=== PATIENT | male | born 1945 | race Caucasian/White ===

== ENCOUNTER 2024-05-31 09:13 | Outpatient (AMB) | payer MEDICARE, SELFPAY ==
--- NOTE | 2024-05-31 09:45 | A.OFFPC_ITS ---
Vital Signs 05/31/24 09:47 Height 5 ft 8.11 in Weight 148 lb 6 oz BMI 22.5 BP 130/80 Blood Pressure Location Lt brachial Position Sitting Pulse 83 Pulse Source Pulse Oximeter Temp 97.1 F Temp Source Temporal Artery Scan Pulse Oximetry (%) 97 Oxygen Delivery Method Room Air Intake Visit Reasons: establish care Intake Note: Patient is a new patient here to establish care for Arthritis, History of neck pain, Dupron syndrome, Bone spurs. Transferring care from [facility] . Medical records have been requested and have received. Sr. Manager Corporate Communications Required: No Database Reporting Consultant: Present Accompanied by: Spouse Allergies gabapentin Allergy (Intermediate, Verified 05/31/24 10:13) Anaphylaxis Medication List - Last Reconciled 05/31/24 by Dottie Estrada PA-C omega 2-bhy-iwz-fish oil 300-1,000 mg (Fish Oil) 1 cap PO DAILY Tobacco use date assessed: 05/31/24 Fall risk assessment: No Falls in past year Last assessed Fall Risk: 05/31/24 Dental Screening Dental Screen Date: 05/31/24 Did you have a dental visit in the last 12 months?: Yes Did you have a dental problem in the last 6 months where you did not have access to dental care?: No Was dental information given to patient?: Patient has dentist HPI establish care HPI Details 79-year-old male with past medical histo ry of chronic pain of left knee coming to the office for the 1st time.? Patient is transferring from [facility] primary care last seen 2019. Presenting with osteoarthritis primarily affecting the wrists, thumbs, fingers, and other joints, which causes persistent pain and stiffness. 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 He experiences intense pain in the morning, making it difficult to move his hands, which improves with therapy involving soaking his hands in warm and cold water. He effectively uses compression gloves overnight to manage symptoms. The patient has not received orthopedic interventions like injections but is aware of their availability if necessary and does follow with [facility]. He also reports having Dupuytren's Contracture in both palms, posing additional limitations. 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 declined lung cancer screening. colonoscopy: done 10 years ago [facility] Surgical History History of eye removal History of tonsillectomy History of facial surgery History of neck surgery Social History Housing: House Alcohol intake: never Patient Tobacco Use Status: Current everyday Tobacco user Tobacco use type: Cigarette Cigarette Packs Per Day: 0.5 Cigarettes Per Day: 10 Years Smoked: 65 e-Cigarette/Vaping Use: Never Used Second Hand Smoke Exposure: Yes service: Yes Current occupational status: retired Cognitive needs: No Hearing needs: No Vision needs: Yes (Glasses) Questionnaire PHQ-9 Over the last 2 weeks, how often have you been bothered by any of the following problems? 1. Little interest or pleasure in doing things: not at all 2. Feeling down, depressed, or hopeless: not at all 3. Trouble falling or staying asleep, or sleeping too much: not at all 4. Feeling tired or having little energy: not at all 5. Poor appetite or overeating: not at all 6. Feeling bad about yourself - or that you are a failure or have let yourself or your family down: not at all 7. Trouble concentrating on things, such as reading the newspaper or watching television: not at all 8. Moving or speaking so slowly that other people could have noticed. Or the opposite - being so fidgety or restless that you have been moving around a lot more than usual: not at all 9. Thoughts that you would be better off or of hurting yourself in some way: not at all Total score: 0 Depression Screening Interpretation: Negative Depression Screening Done: Yes Source: Developed by Drs. Domenico Holden, Christina Lara, Benjamin Man and colleagues, with an educational alondra from [employer]. Thrive Questionnaire Date Thrive assessed: 05/24/24 I am a: Patient What is your living situation today?: I have a steady place to live Within the past 12 months, did the food you bought not last and you didn't have the money to get more?: Never true Within the past 12 months, did you worry whether your food would run out before you got money to buy more?: Never true Do you have trouble paying for medicines?: No Do you have trouble getting transportation to medical appointments?: No Do you have trouble paying your heating and electricity bill?: No Do you have trouble taking care of your child, family member or friend?: No Do you have trouble with day-to-day activities such as bathing, preparing meals, shopping, managing finances, etc.?: No Are you currently unemployed and looking for a job?: No Are you interested in more education?: No Please select the resources that you would like help with: None Currently or been in a relationship where the following occur: No concerns reported THRIVE Score: 0 AUDIT C Alcohol Use Questionnaire (AUDIT-C) 2. How many drinks containing alcohol do you have on a typical day when you are drinking?: 1 or 2 Total Score: 0 SUPA-7 AMB Questionnaire SUPA-7 Date SUPA - 7 assessed: 05/31/24 Feeling nervous, anxious, or on edge: 0 = Not at all Not being able to stop or control worryin = Not at all Worrying too much about different things: 0 = Not at all Trouble relaxin = Not at all Being so restless that it is hard to sit still: 0 = Not at all Becoming easily annoyed or irritable: 0 = Not at all Feeling afraid as if something awful might happen: 0 = Not at all Total SUPA-7 score (0-4 normal; 5-9 mild; 10-14 moderate; 15-21 severe): 0 Source: Developed by Drs. Domenico Holden, Christina Lara, Benjamin Man and colleagues, with an educational alondra from [employer]. SUPA-7 Assessment Billing SUPA-7 Assessment Tool: SUPA-7 Assessment 11820 Review of Systems Const Denies body aches, Denies chills, Denies fever(s), Denies headache(s) and Denies poor appetite Eyes Reports no additional complaints ENT Denies dizziness and Denies headache(s) Card Denies chest pain, Denies syncope, Denies edema, Denies irregular heart rhythm, Denies lightheadedness and Denies dyspnea Resp Denies cough and Denies dyspnea GI Denies abdominal pain, Denies constipation, Denies diarrhea, Denies nausea and Denies vomiting Reports no additional complaints Musc Reports no additional complaints and Denies abnormal gait Skin/Breast Reports system reviewed and no additional complaints, except as documented Neuro Denies abnormal gait, Denies dizziness, Denies syncope and Denies headache(s) Psych Reports no additional complaints Physical exam (Primary Care) Vital Signs: Last Vital Signs Temp 97.1 F 05/31/24 09:47 Pulse 83 05/31/24 09:47 BP 130/80 05/31/24 09:47 Pulse Ox 97 05/31/24 09:47 Oxygen Delivery Method Room Air 05/31/24 09:47 BMI result Body Mass Index 22.5 Tobacco/Smoking Status: Tobacco use Status Tobacco use date assessed 05/31/24 05/31/24 09:53 Patient Tobacco Use Status Current everyday Tobacco 05/31/24 09:59 Tobacco use type Cigarette 05/31/24 09:59 e-Cigarette/Vaping Use Never Used 05/31/24 09:58 Are you ready to quit: No Tobacco cessation counseling provided: Yes Items discussed: Nicotine replacement CPT code: Less than 3 minutes PHQ-9: PHQ-9 Score PHQ-9: Total score 0 05/31/24 10:18 Depression Screening Interpretation: Negative Thrive Assessment: Date of Thrive Assessment Date Thrive assessed 05/24/24 05/31/24 09:53 Currently or been in a relationship where the following occur: No concerns reported Const General: cooperative, healthy appearing, comfortable and no acute distress Orientation/consciousness: patient oriented x3 HENMT Head: Yes normocephalic Ears: hearing grossly normal bilaterally General nose exam: Normal external nose present Eyes General: appearance normal, both eyes and all related structures Conjunctivae: conjunctivae normal Neck Neck: Yes full ROM and Yes no lymphadenopathy Resp Effort & Inspection: normal respiratory effort Auscultation: clear to auscultation bilaterally, no crackles, no rales, no rhonchi and no wheezes Cardio Rate: regular rate Rhythm: regular rhythm Skin General skin exam: no rashes or lesions noted Neuro General: patient oriented x3 Gait exam (Neuro): Normal gait present Extrem General: Yes normal to inspection, Yes full ROM and No edema Psych Affect: normal affect Attitude: cooperative Insight: Good insight present (Psych) Judgement: Good judgement present (Psych) Coding Level of Care Code New Pt Level 4 (51524) Diagnoses Osteoarthritis of hands, bilateral M19.041; M19.042 Tobacco use disorder F17.200 Colon cancer screening declined Z53.20 Additional Codes SUPA-7 Assessment Billing - SUPA-7 Assessment Tool: SUPA-7 Assessment 56550 ([id number]) Assessment & Plan Assessment & Plan (1) Osteoarthritis of hands, bilateral: Code(s): M19.041 - Primary osteoarthritis, right hand; M19.042 - Primary osteoarthritis, left hand Category: Medical Plan: The patient is advised to continue using compression gloves at night to manage osteoarthritis symptoms effectively. I recommended topical Voltaren gel for localized musculoskeletal pain relief. The patient is considering orthopedic consultation if symptoms worsen. (2) Tobacco use disorder: Code(s): F17.200 - Nicotine dependence, unspecified, uncomplicated Category: Medical Plan: Smoking cigarettes and the use of tobacco can be harmful. We discussed the importance of stopping and options to aid in smoking cessation. Discuss with patient lung cancer screening referral which was declined today. Patient also declines treatment using nicotine replacement therapy or other medical management. (3) Colon cancer screening declined: Code(s): Z53.20 - Procedure and treatment not carried out because of patient's decision for unspecified reasons Category: Medical Plan: Patient states he had a colonoscopy around 10 years ago which was normal and advised to follow up in 10 years. He is declining further screening at this time. Plan This note was constructed using voice recognition software. While every effort has been made to ensure accuracy and funeral service practitioner/embalmer, still areas may have been included sometimes these areas may affect the content or meeting of the given symptoms. Total time spent caring for the patient today was 30 minutes. This includes time spent before the visit reviewing the chart, time spent during the visit, and time spent after the visit and documentation. Patient was informed and verbally consented to the use of an ambient scribe for clinic note documentation during this visit. He is aware of the implications of his tobacco use and has access to cessation resources, although no immediate plans to quit were expressed. Blood work has been ordered for follow-up in three months to evaluate vitamin levels and other health parameters. Monitoring and revisiting the option of cortisone injections for symptom relief remain in plan. Orders: Orders Free T4 (Free Thyroxine) Today Z00.00 - Encounter for general adult medical examination without abnormal findings TSH reflex Free T4 Today Z00.00 - Encounter for general adult medical examination without abnormal findings Lipid Panel Today Z13.220 - Encounter for screening for lipoid disorders PSA, Ultra Sensitive Today Z00.00 - Encounter for general adult medical examination without abnormal findings Comprehensive Met. Panel Today Z00.00 - Encounter for general adult medical examination without abnormal findings Complete Blood Count Auto Diff Today Z00.00 - Encounter for general adult medi rommel examination without abnormal findings Vitamin B12 and Folate Today Z00.00 - Encounter for general adult medical examination without abnormal findings Vitamin D 25-OH Total Today Z00.00 - Encounter for general adult medical examination without abnormal findings Medications: New diclofenac sodium 1% (Voltaren Arthritis Pain) apply to single elbow, wrist or hand; for hand includes palm/fingers/back of hand 2 grams topical QID 100 grams 0RF
[2024-05-31 09:47] VITALS: BP 130/80; PULSE 83; TEMP 36.2; O2SAT 97; BMI 22.5
== END 2024-05-31 10:38 | disposition home or self-care (01) ==
LOC: HO.HMCH 09:14
DX: M19.041 Primary osteoarthritis, right hand (principal); M19.042 Primary osteoarthritis, left hand; F17.200 Nicotine dependence, unspecified, uncomplicated; Z53.20 Procedure and treatment not carried out because of patient's decision for unspecified reasons

== ENCOUNTER → 2024-05-31 09:13 | Outpatient (BNVA) | payer MEDICARE, SELFPAY | DX: M54.2 Cervicalgia (principal); M25.562 Pain in left knee; G89.29 Other chronic pain; M19.041 Primary osteoarthritis, right hand; M19.042 Primary osteoarthritis, left hand; F17.210 Nicotine dependence, cigarettes, uncomplicated | CPT/HCPCS: 96127; 99202 ==

== ENCOUNTER 2024-09-04 08:42 | Outpatient (AMB) | payer MEDICARE, SELFPAY ==
[2024-09-04 08:52] VITALS: BP 142/90; PULSE 73; RESP 16; TEMP 36.2; O2SAT 96; BMI 22.0
--- NOTE | 2024-09-04 08:52 | A.OFFPC_ITS ---
Vital Signs 09/04/24 08:52 09/04/24 09:25 Height 5 ft 8.11 in Weight 145 lb 6 oz BMI 22.0 BP 142/90 H 142/88 H Blood Pressure Location Lt brachial Lt brachial Position Sitting Sitting Respiration 16 Pulse 73 Pulse Source Pulse Oximeter Temp 97.1 F Temp Source Temporal Artery Scan Pulse Oximetry (%) 96 Oxygen Delivery Method Room Air Intake Visit Reasons: pe Accompanied by: Spouse Allergies gabapentin Allergy (Intermediate, Verified 09/04/24 09:00) Anaphylaxis Medication List - Last Reconciled 09/04/24 by Dottie Estrada PA-C diclofenac sodium 1% (Voltaren Arthritis Pain) 2 grams topical QID omega 5-lum-qmz-fish oil 300-1,000 mg (Fish Oil) 1 cap PO DAILY turmeric root extract 500 mg PO DAILY Tobacco use date assessed: 09/04/24 Fall risk assessment: No Falls in past year Last assessed Fall Risk: 09/04/24 Dental Screening Dental Screen Date: 09/04/24 Did you have a dental visit in the last 12 months?: Yes Did you have a dental problem in the last 6 months where you did not have access to dental care?: No Was dental information given to patient?: Patient has dentist HPI pe HPI Details 79 year old male with past medical histo ry of tobacco use disorder last seen 05/2024 coming in for annual exam. Presenting for a routine wellness visit and management of chronic conditions. The patient has a cataract in his only remaining eye, with surgery planned in two to three months. He is anxious about the procedure due to having only one eye. The patient's sodium levels are slightly low, possibly due to high water intake or low dietary sodium. He has been advised to reduce water intake or i ncrease sodium intake. The patient has low-normal vitamin B12 levels, attributed to low red meat consumption. He has been advised to take a multivitamin. lung cancer screening: declined Eye exam: [facility] PSA: 06/2024 normal colonoscopy: 10 years ago and declining additional screening [facility] Surgical History History of eye removal History of tonsillectomy History of facial surgery History of neck surgery Social History Housing: House Alcohol intake: never Patient Tobacco Use Status: Current everyday Tobacco user Tobacco use type: Cigarette Cigarette Packs Per Day: 0.5 Cigarettes Per Day: 10 Years Smoked: 65 e-Cigarette/Vaping Use: Never Used Second Hand Smoke Exposure: Yes service: Yes Current occupational status: retired Cognitive needs: No Hearing needs: No Vision needs: Yes (Glasses) Questionnaire PHQ-9 Over the last 2 weeks, how often have you been bothered by any of the following problems? 1. Little interest or pleasure in doing things: not at all 2. Feeling down, depressed, or hopeless: not at all 3. Trouble falling or staying asleep, or sleeping too much: not at all 4. Feeling tired or having little energy: not at all 5. Poor appetite or overeating: not at all 6. Feeling bad about yourself - or that you are a failure or have let yourself or your family down: not at all 7. Trouble concentrating on things, such as reading the newspaper or watching television: not at all 8. Moving or speaking so slowly that other people could have noticed. Or the opposite - being so fidgety or restless that you have been moving around a lot more than usual: not at all 9. Thoughts that you would be better off or of hurting yourself in some way: not at all Total score: 0 Depression Screening Interpretation: Negative Depression Screening Done: Yes Source: Developed by Drs. Domenico Holden, Christina Lara, Benjamin Man and colleagues, with an educational alondra from [employer]. Thrive Questionnaire Date Thrive assessed: 05/24/24 I am a: Patient What is your living situation today?: I have a steady place to live Within the past 12 months, did the food you bought not last and you didn't have the money to get more?: Never true Within the past 12 months, did you worry whether your food would run out before you got money to buy more?: Never true Do you have trouble paying for medicines?: No Do you have trouble getting transportation to medical appointments?: No Do you have trouble paying your heating and electricity bill?: No Do you have trouble taking care of your child, family member or friend?: No Do you have trouble with day-to-day activities such as bathing, preparing meals, shopping, managing finances, etc.?: No Are you currently unemployed and looking for a job?: No Are you interested in more education?: No Please select the resources that you would like help with: None Currently or been in a relationship where the following occur: No concerns reported THRIVE Score: 0 AUDIT C Alcohol Use Questionnaire (AUDIT-C) 2. How many drinks containing alcohol do you have on a typical day when you are drinking?: 1 or 2 Total Score: 0 SUPA-7 AMB Questionnaire SUPA-7 Date SUPA - 7 assessed: 05/31/24 Feeling nervous, anxious, or on edge: 0 = Not at all Not being able to stop or control worryin = Not at all Worrying too much about different things: 0 = Not at all Trouble relaxin = Not at all Being so restless that it is hard to sit still: 0 = Not at all Becoming easily annoyed or irritable: 0 = Not at all Feeling afraid as if something awful might happen: 0 = Not at all Total SUPA-7 score (0-4 normal; 5-9 mild; 10-14 moderate; 15-21 severe): 0 Source: Developed by Drs. Domenico Holden, Chirstina Lara, Benjamin Man and colleagues, with an educational alondra from [employer]. Review of Systems Const Denies body aches, Denies fatigue, Denies fever(s), Denies frequent falls, Denies headache(s) and Denies weakness Eyes Reports no additional complaints and Denies change in vision ENT Denies dysphagia, Denies dizziness, Denies facial pain, Denies headache(s), Denies nasal congestion and Denies odynophagia Card Denies chest pain, Denies syncope, Denies irregular heart rhythm, Denies leg nato ma, Denies lightheadedness and Denies dyspnea Resp Denies cough and Denies dyspnea GI Denies abdominal pain, Denies constipation, Denies dysphagia, Denies dyspepsia, Denies diarrhea, Denies nausea, Denies odynophagia and Denies vomiting Denies dysuria, Denies nocturia, Denies urinary frequency, Denies urinary hesitancy and Denies urinary urgency Musc Details: bilateral hand pain Denies back pain and Denies myalgias Skin/Breast Reports system reviewed and no additional complaints, except as documented Neuro Denies dizziness, Denies syncope, Denies frequent falls, Denies headache(s) and Denies weakness Psych Reports no additional complaints Endo Denies fatigue Physical exam (Primary Care) Vital Signs: Last Vital Signs Temp 97.1 F 09/04/24 08:52 Pulse 73 09/04/24 08:52 Resp 16 09/04/24 08:52 BP 142/88 H 09/04/24 09:25 Pulse Ox 96 09/04/24 08:52 Oxygen Delivery Method Room Air 09/04/24 08:52 BMI result Body Mass Index 22.0 Tobacco/Smoking Status: Tobacco use Status Tobacco use date assessed 09/04/24 09/04/24 08:57 Patient Tobacco Use Status Current everyday Tobacco 09/04/24 08:57 Tobacco use type Cigarette 09/04/24 08:57 e-Cigarette/Vaping Use Never Used 09/04/24 08:57 PHQ-9: PHQ-9 Score PHQ-9: Total score 0 09/04/24 09:00 Depression Screening Interpretation: Negative Thrive Assessment: Date of Thrive Assessment Date Thrive assessed 05/24/24 09/04/24 08:57 Currently or been in a relationship where the following occur: No concerns reported Const General: cooperative, healthy appearing, comfortable and no acute distress Orientation/consciousness: patient oriented x3 HENMT Head: Yes normocephalic Ears: hearing grossly normal bilaterally, external ears normal, TM's normal bilaterally and EAC's normal General nose exam: Normal external nose present Face and sinus: Yes normal facial exam and Yes sinuses nontender Mouth: Normal oral and palatal mucosa present and tongue normal Throat: Yes posterior oropharynx normal Eyes General: appearance normal, both eyes and all related structures Conjunctivae: conjunctivae normal Pupils: Equal, round and reactive pupils present EOM: EOMs intact bilaterally and No Nystagmus present Neck Neck: Yes normal visual inspection, Yes full ROM and Yes no lymphadenopathy Chest Chest palpation & inspection: normal inspection of the chest Resp Effort & Inspection: normal respiratory effort Auscultation: clear to auscultation bilaterally, no crackles, no rales, no rhonchi, no wheezes and breath sounds present Cardio Rate: regular rate Rhythm: regular rhythm Peripheral pulses: radial pulses present and dorsalis pedis present GI Inspection: Yes normal to inspection and No Abdominal wall edema Palpation (GI): Soft to palpation, not firm and nontender Auscultation: normal bowel sounds Rectal Exam - Male: Yes deferred General: Yes no CVA tenderness Back/Spine/Pelvis Back: no CVA tenderness Skin General skin exam: no rashes or lesions noted Neuro General: patient oriented x3 Cranial nerves: Yes Equal, round and reactive pupils present, Yes Midline tongue present, Yes Ability to bilaterally elevate shoulders present and No Nystagmus present Gait exam (Neuro): Normal gait present Extrem General: Yes normal to inspection, Yes full ROM, No no pedal edema and No edema Psych Speech and movement: Normal speech and movement present Affect: normal affect Insight: Good insight present (Psych) Judgement: Good judgement present (Psych) Coding Level of Care Code Est Pt Prev Care >65y(01043) Diagnoses Annual physical exam Z00.00 Colon cancer screening declined Z53.20 Osteoarthritis of hands, bilateral M19.041; M19.042 Tobacco use disorder F17.200 Hyponatremia E87.1 Elevated blood pressure reading without diagnosis of hypertension R03.0 Assessment & Plan Assessment & Plan (1) Annual physical exam: Code(s): Z00.00 - Encounter for general adult medical examination without abnormal findings Category: Medical Plan: Patient is due for colonoscopy which he is declining today. His PSA and other screenings are up-to-date and has been reviewed with the patient today. Blood work is up-to-date and has also been reviewed with the patient. Healthy diet and regular exercise is encouraged. (2) Colon cancer screening declined: Code(s): Z53.20 - Procedure and treatment not carried out because of patient's decision for unspecified reasons Category: Medical Plan: Patient continues to decline colonoscopy screening and understands the risks of not having this test done. (3) Osteoarthritis of hands, bilateral: Code(s): M19.041 - Primary osteoarthritis, right hand; M19.042 - Primary osteoarthritis, left hand Category: Medical Plan: Patient continues to use the copper sleeves as needed for hand pain. He does have Voltaren gel to be used as needed which he has not yet tried. He agrees to try this cream as needed and may follow up with [facility] as well as needed. (4) Tobacco use disorder: Code(s): F17.200 - Nicotine dependence, unspecified, uncomplicated Category: Medical Plan: Smoking cigarettes and the use of tobacco can be harmful. We discussed the importance of stopping and options to aid in smoking cessation. Declining lung cancer screening referral and NRT or medical management for smoking cessation at this time. (5) Hyponatremia: Code(s): E87.1 - Hypo-osmolality and hyponatremia Category: Medical Plan: Very mildly decreased sodium levels at 132. He states he does drink excessive amounts of water advised him to decrease his water intake and increase electrolyte intake with Gatorade or Powerade. Plan to repeat labs. (6) Elevated blood pressure reading without diagnosis of hypertension: Code(s): R03.0 - Elevated blood-pressure reading, without diagnosis of hypertension Category: Medical Plan: Blood pressure is mildly elevated in the office today 142/88 he states it is always elevated in the office due to anxiety. He agrees to take the blood pressure 2-3 times per week for the next month and follow up with nursing navigation at that time for repeat blood pressure check. If blood pressures at home exceed 140/90 patient agrees to reach out to the office. Plan to follow up yearly or sooner as needed for blood pressure management. Plan The patient is advised to monitor his blood pressure at home due to elevated readings during the visit, with instructions to report the measurements for further evaluation. He is encouraged to continue using multivitamins to address low vitamin and vitamin D levels, and to adjust his sodium intake by either reducing water consumption or increasing dietary sodium. 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 The patient is counseled on the importance of smoking cessation, although he expresses no interest in quitting or undergoing lung cancer screening. He is encouraged to maintain his current level of physical activity, which includes gardening and house maintenance, to support overall health. Follow-up is recommended in one month to reassess blood pressure and ensure compliance with the management plan. This note was constructed using voice recognition software. While every effort has been made to ensure accuracy and laser operator, still areas may have been included sometimes these areas may affect the content or meeting of the given symptoms. Total time spent caring for the patient today was 30 minutes. This includes time spent before the visit reviewing the chart, time spent during the visit, and time spent after the visit and documentation. Patient was informed and verbally consented to the use of an ambient scribe for clinic note documentation during this visit. Orders: Orders Basic Metabolic Panel Today E87.1 - Hypo-osmolality and hyponatremia
[2024-09-04 09:25] VITALS: BP 142/88
== END 2024-09-04 09:44 | disposition home or self-care (01) ==
LOC: HO.HMCH 08:43
DX: Z00.00 Encounter for general adult medical examination without abnormal findings (principal); Z53.20 Procedure and treatment not carried out because of patient's decision for unspecified reasons; M19.041 Primary osteoarthritis, right hand; M19.042 Primary osteoarthritis, left hand; F17.200 Nicotine dependence, unspecified, uncomplicated; E87.1 Hypo-osmolality and hyponatremia; R03.0 Elevated blood-pressure reading, without diagnosis of hypertension

== ENCOUNTER → 2024-09-04 08:42 | Outpatient (BNVA) | payer MEDICARE, SELFPAY | DX: Z00.00 Encounter for general adult medical examination without abnormal findings (principal); M19.041 Primary osteoarthritis, right hand; M19.042 Primary osteoarthritis, left hand; E87.1 Hypo-osmolality and hyponatremia; R03.0 Elevated blood-pressure reading, without diagnosis of hypertension; F17.210 Nicotine dependence, cigarettes, uncomplicated; Z13.31 Encounter for screening for depression | CPT/HCPCS: 96127; 99397 ==

== ENCOUNTER → 2024-10-05 08:52 | Outpatient (BNVA) | payer MEDICARE, SELFPAY | DX: I10 Essential (primary) hypertension (principal); I95.9 Hypotension, unspecified | CPT/HCPCS: 99211 ==

== ENCOUNTER 2024-10-31 08:47 | Outpatient (AMB) | payer MEDICARE, SELFPAY ==
--- NOTE | 2024-10-31 08:49 | MHC.PC.OV ---
Vital Signs 10/31/24 08:51 Height 5 ft 8.11 in Weight 146 lb BMI 22.1 BP 140/72 H Blood Pressure Location Lt brachial Position Sitting Pulse 54 Pulse Source Pulse Oximeter Pulse Oximetry (%) 94 Oxygen Delivery Method Room Air Intake Visit Reasons: [facility] 11/22 cataract surgery Inseamer Required: No Accompanied by: Self / Same As Patient Allergies gabapentin Allergy (Intermediate, Verified 10/31/24 08:50) Anaphylaxis Tobacco use date assessed: 10/31/24 Fall risk assessment: No Falls in past year Last assessed Fall Risk: 10/31/24 Dental Screening Dental Screen Date: 09/04/24 Did you have a dental visit in the last 12 months?: Yes Did you have a dental problem in the last 6 months where you did not have access to dental care?: No Was dental information given to patient?: Patient has dentist HPI [facility] 11/22 cataract surgery HPI Details 79-year-old male with past medical history of tobacco use disorder last seen 08/2024 coming in for preoperative visit. Patient is scheduled to have cataract surgery with [facility] 11/22/2024. He was recently hospitalized for syncope workup was completed at [facility] which revealed a possible thrombus in the left ventricle and was started on Eliquis b.i.d. He has no acute concerns today. He is scheduled to see cardiology 12/15/2024 for follow up but was advised to continue on the Eliquis. [facility] Surgical History History of eye removal History of tonsillectomy History of facial surgery History of neck surgery Social History Housing: House Alcohol intake: never Patient Tobacco Use Status: Current everyday Tobacco user Tobacco use type: Cigarette Cigarette Packs Per Day: 0.5 Cigarettes Per Day: 10 Years Smoked: 65 e-Cigarette/Vaping Use: Never Used Second Hand Smoke Exposure: Yes service: Yes Current occupational status: retired Cognitive needs: No Hearing needs: No Vision needs: Yes (Glasses) Questionnaire PHQ-9 Over the last 2 weeks, how often have you been bothered by any of the following problems? 1. Little interest or pleasure in doing things: not at all 2. Feeling down, depressed, or hopeless: not at all 3. Trouble falling or staying asleep, or sleeping too much: not at all 4. Feeling tired or having little energy: not at all 5. Poor appetite or overeating: not at all 6. Feeling bad about yourself - or that you are a failure or have let yourself or your family down: not at all 7. Trouble concentrating on things, such as reading the newspaper or watching television: not at all 8. Moving or speaking so slowly that other people could have noticed. Or the opposite - being so fidgety or restless that you have been moving around a lot more than usual: not at all 9. Thoughts that you would be better off or of hurting yourself in some way: not at all Total score: 0 Depression Screening Interpretation: Negative Depression Screening Done: Yes Source: Developed by Drs. Domenico Holden, Christina Lara, Benjamin Man and colleagues, with an educational alondra from [employer]. Thrive Questionnaire Date Thrive assessed: 05/24/24 I am a: Patient What is your living situation today?: I have a steady place to live Within the past 12 months, did the food you bought not last and you didn't have the money to get more?: Never true Within the past 12 months, did you worry whether your food would run out before you got money to buy more?: Never true Do you have trouble paying for medicines?: No Do you have trouble getting transportation to medical appointments?: No Do you have trouble paying your heating and electricity bill?: No Do you have trouble taking care of your child, family member or friend?: No Do you have trouble with day-to-day activities such as bathing, preparing meals, shopping, managing finances, etc.?: No Are you currently unemployed and looking for a job?: No Are you interested in more education?: No Please select the resources that you would like help with: None Currently or been in a relationship where the following occur: No concerns reported THRIVE Score: 0 AUDIT C Alcohol Use Questionnaire (AUDIT-C) 2. How many drinks containing alcohol do you have on a typical day when you are drinking?: 1 or 2 Total Score: 0 SUPA-7 AMB Questionnaire SUPA-7 Date SUPA - 7 assessed: 05/31/24 Feeling nervous, anxious, or on edge: 0 = Not at all Not being able to stop or control worryin = Not at all Worrying too much about different things: 0 = Not at all Trouble relaxin = Not at all Being so restless that it is hard to sit still: 0 = Not at all Becoming easily annoyed or irritable: 0 = Not at all Feeling afraid as if something awful might happen: 0 = Not at all Total SUPA-7 score (0-4 normal; 5-9 mild; 10-14 moderate; 15-21 severe): 0 Source: Developed by Drs. Domenico Holden, Christina Lara, Benjamin Man and colleagues, with an educational alondra from [employer]. Review of Systems Const Denies body aches, Denies fatigue, Denies fever(s), Denies frequent falls, Denies headache(s) and Denies weakness Eyes Reports no additional complaints and Denies change in vision ENT Denies dysphagia, Denies dizziness, Denies facial pain, Denies headache(s), Denies nasal congestion and Denies odynophagia Card Denies chest pain, Reports syncope (09/2024 ), Denies irregular heart rhythm, Denies leg edema, Denies lightheadedness and Denies dyspnea Resp Denies cough and Denies dyspnea GI Denies abdominal pain, Denies constipation, Denies dysphagia, Denies dyspepsia, Denies diarrhea, Denies nausea, Denies odynophagia and Denies vomiting Denies dysuria, Denies urinary frequency, Denies urinary hesitancy and Denies urinary urgency Musc Denies back pain and Denies myalgias Skin/Breast Reports system reviewed and no additional complaints, except as documented Neuro Denies dizziness, Reports syncope (09/2024 ), Denies frequent falls, Denies headache(s) and Denies weakness Psych Reports no additional complaints Endo Denies fatigue Physical exam (Primary Care) Vital Signs: Last Vital Signs Pulse 54 10/31/24 08:51 BP 140/72 H 10/31/24 08:51 Pulse Ox 94 10/31/24 08:51 Oxygen Delivery Method Room Air 10/31/24 08:51 BMI result Body Mass Index 22.1 Tobacco/Smoking Status: Tobacco use Status Tobacco use date assessed 10/31/24 10/31/24 08:58 Patient Tobacco Use Status Current everyday Tobacco 10/31/24 08:58 Tobacco use type Cigarette 10/31/24 08:58 e-Cigarette/Vaping Use Never Used 10/31/24 08:58 PHQ-9: PHQ-9 Score PHQ-9: Total score 0 10/31/24 09:32 Depression Screening Interpretation: Negative Thrive Assessment: Date of Thrive Assessment Date Thrive assessed 05/24/24 10/31/24 08:58 Currently or been in a relationship where the following occur: No concerns reported Const General: cooperative, healthy appearing, comfortable and no acute distress Orientation/consciousness: patient oriented x3 HENMT Head: Yes normocephalic Ears: hearing grossly normal bilaterally, external ears normal, TM's normal bilaterally and EAC's normal General nose exam: Normal external nose present Face and sinus: Yes normal facial exam and Yes sinuses nontender Mouth: Normal oral and palatal mucosa present and tongue normal Throat: Yes posterior oropharynx normal Eyes General: appearance normal, both eyes and all related structures Conjunctivae: conjunctivae normal Pupils: Equal, round and reactive pupils present EOM: EOMs intact bilaterally and No Nystagmus present Neck Neck: Yes normal visual inspection, Yes full ROM and Yes no lymphadenopathy Chest Chest palpation & inspection: normal inspection of the chest Resp Effort & Inspection: normal respiratory effort Auscultation: clear to auscultation bilaterally, no crackles, no rales, no rhonchi, no wheezes and breath sounds present Cardio Rate: regular rate Rhythm: regular rhythm Peripheral pulses: radial pulses present and dorsalis pedis present GI Inspection: Yes normal to inspection and No Abdominal wall edema Palpation (GI): Soft to palpation, not firm and nontender Auscultation: normal bowel sounds Rectal Exam - Male: Yes deferred General: Yes no CVA tenderness Back/Spine/Pelvis Back: no CVA tenderness Skin General skin exam: no rashes or lesions noted Neuro General: patient oriented x3 Cranial nerves: Yes Equal, round and reactive pupils present, Yes Midline tongue present, Yes Ability to bilaterally elevate shoulders present and No Nystagmus present Gait exam (Neuro): Normal gait present Extrem General: Yes normal to inspection, Yes full ROM, No no pedal edema and No edema Psych Speech and movement: Normal speech and movement present Affect: normal affect Insight: Good insight present (Psych) Judgement: Good judgement present (Psych) Coding Level of Care Code Est Pt Level 3 (67459) Diagnoses Pre-op evaluation Z01.818 Thrombus in heart chamber I51.3 Assessment & Plan Assessment & Plan (1) Pre-op evaluation: Code(s): Z01.818 - Encounter for other preprocedural examination Category: Medical Plan: Regarding preop clearance, the patient is at moderate risk for proposed surgery due to age and comorbidities. Reviewed with the patient that no surgery is completely free of risk and that this examination is to assist the surgeon in reviewing informed consent. Surgery not requiring EKG and blood work however he did have recent workup while in [facility] ED which was normal. He will continue on the apixaban 5 mg b.i.d. as this will likely not interfere with his surgery and there is low risk for bleed during cataract surgery. He will also see his boot and shoe laborer 11/15/2024 prior to surgery. However from a primary care standpoint he may proceed with contemplated procedure. (2) Thrombus in heart chamber: Code(s): I51.3 - Intracardiac thrombosis, not elsewhere classified Category: Medical Plan: Patient is scheduled to see Cardiology 11/15/2024 for follow up echocardiogram. He will continue on apixaban 5 mg b.i.d. and referral was placed to Hematology today as well for hypercoagulable workup. Strongly advised to stop smoking. Discussed patient can not take NSAIDs while on apixaban Plan This note was constructed using voice recognition software. While every effort has been made to ensure accuracy and navy diver, still areas may have been included sometimes these areas may affect the content or meeting of the given symptoms. Total time spent caring for the patient today was 30 minutes. This includes time spent before the visit reviewing the chart, time spent during the visit, and time spent after the visit and documentation. Orders: Referrals Hematology & Oncology Referral I51.3 - Intracardiac thrombosis, not elsewhere classified
[2024-10-31 08:51] VITALS: BP 140/72; PULSE 54; O2SAT 94; BMI 22.1
== END 2024-10-31 09:57 | disposition home or self-care (01) ==
LOC: HO.HMCH 08:48
DX: Z01.818 Encounter for other preprocedural examination (principal); I51.3 Intracardiac thrombosis, not elsewhere classified

== ENCOUNTER → 2024-10-31 08:47 | Outpatient (BNVA) | payer MEDICARE, SELFPAY | DX: Z01.818 Encounter for other preprocedural examination (principal); I51.3 Intracardiac thrombosis, not elsewhere classified; Z79.01 Long term (current) use of anticoagulants | CPT/HCPCS: 96127; 99212 ==

== ENCOUNTER → 2024-12-05 10:43 | Outpatient (BNV) | payer MEDICARE, SELFPAY | PROVIDERS: Visit Provider Internal Medicine | DX: I23.6 Thrombosis of atrium, auricular appendage, and ventricle as current complications following acute myocardial infarction (principal); F17.210 Nicotine dependence, cigarettes, uncomplicated; Z79.01 Long term (current) use of anticoagulants | CPT/HCPCS: 99204; G2211 ==

== ENCOUNTER 2025-01-28 08:53 | Outpatient (AMB) | payer MEDICARE, SELFPAY ==
[2025-01-28 09:15] VITALS: BP 138/80; PULSE 75; O2SAT 98; BMI 21.5
--- NOTE | 2025-01-28 09:15 | MHC.PC.OV ---
Vital Signs 01/28/25 09:15 Height 5 ft 10 in Weight 150 lb BMI 21.5 BP 138/80 Blood Pressure Location Lt brachial Position Sitting Pulse 75 Pulse Source Pulse Oximeter Pulse Oximetry (%) 98 Oxygen Delivery Method Room Air Intake Visit Reasons: f/u blood clot Allergies gabapentin Allergy (Intermediate, Verified 01/28/25 09:24) Anaphylaxis Medication List - Last Reconciled 01/28/25 by Dottie Estrada PA-C apixaban 5 mg PO BID losartan 25 mg PO DAILY omega 2-pgk-nma-fish oil 300-1,000 mg (Fish Oil) 1 cap PO DAILY turmeric root extract 500 mg PO DAILY Tobacco use date assessed: 10/31/24 Fall risk assessment: No Falls in past year Last assessed Fall Risk: 01/28/25 Dental Screening Dental Screen Date: 09/04/24 HPI f/u blood clot HPI Details 79-year-old male with past medical history of tobacco use disorder last seen 10/2024 coming in for pre-op. In review of the notes, patient was seen by Hematology 12/2024 advised colonoscopy and lung cancer screening continue to follow with Cardiology. Patient is coming in for preoperative visit for cataract surgery. He is having surgery on his left eye. The upcoming cataract surgery was previously scheduled but canceled by the anesthesiologist because the patient had not been on blood thinners for a sufficient duration. The patient has a history of a blood clot of unknown etiology, for which an extensive hematology workup was negative. The patient is currently on a blood thinner (Eliquis) and has been released from hematology care. He continues to follows with his train gateman and has preoperative appointment coming up Patient has no history of CVA, MT or CHF or diabetes mellitus. He has had surgery in the past without complication [facility] Surgical History History of eye removal History of tonsillectomy History of facial surgery History of neck surgery Family History Brother Non-Hodgkin lymphoma Mother Heart failure Brother HTN (hypertension) Social History Household Members: Spouse Housing: House Alcohol intake: never Patient Tobacco Use Status: Current everyday Tobacco user Tobacco use type: Cigarette Cigarette Packs Per Day: 0.5 Years Smoked: 65 Packs Per Year: 33 e-Cigarette/Vaping Use: Never Used Second Hand Smoke Exposure: Yes service: Yes Current occupational status: retired Cognitive needs: No Hearing needs: No Vision needs: Yes (Glasses) Questionnaire Thrive Questionnaire Date Thrive assessed: 05/24/24 I am a: Patient What is your living situation today?: I have a steady place to live Within the past 12 months, did the food you bought not last and you didn't have the money to get more?: Never true Within the past 12 months, did you worry whether your food would run out before you got money to buy more?: Never true Do you have trouble paying for medicines?: No Do you have trouble getting transportation to medical appointments?: No Do you have trouble paying your heating and electricity bill?: No Do you have trouble taking care of your child, family member or friend?: No Do you have trouble with day-to-day activities such as bathing, preparing meals, shopping, managing finances, etc.?: No Are you currently unemployed and looking for a job?: No Are you interested in more education?: No Please select the resources that you would like help with: None Currently or been in a relationship where the following occur: No concerns reported THRIVE Score: 0 SUPA-7 AMB Questionnaire SUPA-7 Date SUPA - 7 assessed: 05/31/24 Source: Developed by Drs. Domenico Holden, Christina Lara, Benjamin Man and colleagues, with an educational alondra from [employer] Review of Systems Const Denies body aches, Denies chills, Denies fever(s), Denies headache(s) and Denies poor appetite Eyes Reports no additional complaints ENT Denies dizziness and Denies headache(s) Card Denies chest pain, Denies syncope, Denies edema, Denies irregular heart rhythm, Denies lightheadedness and Denies dyspnea Resp Denies dyspnea GI Denies abdominal pain, Denies nausea and Denies vomiting Reports no additional complaints Musc Reports no additional complaints and Denies abnormal gait Skin/Breast Reports system reviewed and no additional complaints, except as documented Neuro Denies abnormal gait, Denies dizziness, Denies syncope and Denies headache(s) Psych Reports no additional complaints Physical exam (Primary Care) Vital Signs: Last Vital Signs Pulse 75 01/28/25 09:15 BP 138/80 01/28/25 09:15 Pulse Ox 98 01/28/25 09:15 Oxygen Delivery Method Room Air 01/28/25 09:15 BMI result Body Mass Index 21.5 Tobacco/Smoking Status: Tobacco use Status Tobacco use date assessed 10/31/24 01/28/25 09:23 Patient Tobacco Use Status Current everyday Tobacco 01/28/25 09:23 Tobacco use type Cigarette 01/28/25 09:23 e-Cigarette/Vaping Use Never Used 01/28/25 09:23 Thrive Assessment: Date of Thrive Assessment Date Thrive assessed 05/24/24 01/28/25 09:23 Currently or been in a relationship where the following occur: No concerns reported Const General: cooperative, healthy appearing, comfortable and no acute distress Orientation/consciousness: patient oriented x3 HENMT Head: Yes normocephalic Ears: hearing grossly normal bilaterally General nose exam: Normal external nose present Eyes General: appearance normal, both eyes and all related structures Conjunctivae: conjunctivae normal Neck Neck: Yes full ROM and Yes no lymphadenopathy Resp Effort & Inspection: normal respiratory effort Auscultation: clear to auscultation bilaterally, no crackles, no rales, no rhonchi and no wheezes Cardio Rate: regular rate Rhythm: regular rhythm Skin General skin exam: no rashes or lesions noted Neuro General: patient oriented x3 Gait exam (Neuro): Normal gait present Extrem General: Yes normal to inspection, Yes full ROM and No edema Psych Affect: normal affect Attitude: cooperative Insight: Good insight present (Psych) Judgement: Good judgement present (Psych) Coding Level of Care Code Est Pt Level 3 (34379) Diagnoses Pre-op evaluation Z01.818 Assessment & Plan Assessment & Plan (1) Pre-op evaluation: Code(s): Z01.818 - Encounter for other preprocedural examination Category: Medical Plan: Regarding preop clearance, the patient is at moderate risk for proposed surgery due to age and comorbidities. Reviewed with the patient that no surgery is completely free of risk and that this examination is to assist the surgeon in reviewing informed consent. Surgery not requiring EKG and blood work however he did have recent workup while in [facility] ED which was normal and recent blood work was within normal limits. He will continue on the apixaban 5 mg b.i.d. as this will likely not interfere with his surgery and there is low risk for bleed during cataract surgery. He will also see his train gateman prior to surgery. However from a primary care standpoint he may proceed with contemplated procedure. Plan This note was constructed using voice recognition software. While every effort has been made to ensure accuracy and coloring room man, still areas may have been included sometimes these areas may affect the content or meeting of the given symptoms. Total time spent caring for the patient today was twenty minutes. This includes time spent before the visit reviewing the chart, time spent during the visit, and time spent after the visit and documentation. Patient was informed and verbally consented to the use of an ambient scribe for clinic note documentation during this visit. Orders: Orders Hemoglobin A1c Today Z01.818 - Encounter for other preprocedural examination
== END 2025-01-28 09:46 | disposition home or self-care (01) ==
LOC: HO.HMCH 08:55
DX: Z01.818 Encounter for other preprocedural examination (principal)

== ENCOUNTER 2025-01-28 08:53 | Outpatient (REF) | payer MEDICARE, SELFPAY ==
[2025-01-28 10:16] LABS: MANUAL DIFF FLAG NO
[2025-01-28 10:42] LABS: Hematocrit 44.7 % (42.0-52.0); Hemoglobin 15.1 g/dl (14.0-18.0); Imm Gran Abs Auto 0.05 X10*3/uL (0.00-0.03); Imm Gran Pct Auto 0.6 % (0.0-0.4); Lymphocytes Absolute Auto 1.3 X10*3/uL (1.2-4.9); Mean Corpuscular HGB Conc 33.8 g/dl (31.0-36.0); Mean Corpuscular Hemoglobin 30.0 pg (27.0-33.0); Mean Corpuscular Volume 88.7 fL (80.0-98.0); NRBC Abs Auto 0.000 X10*3/uL (0.0-0.012); NRBC Pct Auto 0.0 /100WBC (0.0-0.2); Platelet Count 313 X10*3/uL (160-400); Red Blood Count 5.04 X10*6/uL (4.60-5.80); White Blood Count 8.8 X10*3/uL (4.8-10.8)
[2025-01-28 11:58] LABS: Folate 12.8 ng/mL (> or = 4.0); Vitamin B12 187 pg/mL (200-900)
[2025-01-28 12:02] LABS: Free T4 (Free Thyroxine) 1.02 ng/dL (0.71-1.85)
[2025-01-28 12:04] LABS: Anion Gap 13 (12-20)
[2025-01-28 12:08] LABS: Alanine Aminotransferase 36 U/L (0-40); Albumin Level 4.3 g/dL (3.5-5.0); Alkaline Phosphatase 82 U/L (39-117); Aspartate Amino Transferase 37 U/L (5-37); Blood Urea Nitrogen 15 mg/dL (9-16); Calcium 9.2 mg/dL (8.4-10.2); Carbon Dioxide 27 mmol/L (22-29); Chloride 96 mmol/L (96-108); Cholesterol 193 mg/dL (<200); Estimated Glomerular Filt Rate > 60; HDL Cholesterol 76 mg/dL (>40); Potassium 4.9 mmol/L (3.3-5.1); Sodium 131 mmol/L (135-145); Total Protein 6.8 g/dL (6.5-8.0); Triglycerides 58 mg/dL (<150)
[2025-02-01 00:48] LABS: PSA, Ultra Sensitive 1.13 ng/mL
== END 2025-01-28 08:54 | disposition home or self-care (01) ==
LOC: HO.LAB 08:53
DX: Z01.818 Encounter for other preprocedural examination (principal); Z12.5 Encounter for screening for malignant neoplasm of prostate; Z72.0 Tobacco use; Z86.711 Personal history of pulmonary embolism; Z13.6 Encounter for screening for cardiovascular disorders; Z13.1 Encounter for screening for diabetes mellitus; Z13.220 Encounter for screening for lipoid disorders
CPT/HCPCS: 36415; 80053; 80061; 82306; 82607; 82746; 83036; 84153; 84439; 84443; 85025; 99212

== ENCOUNTER 2025-02-08 09:21 | Outpatient (REF) | payer MEDICARE, SELFPAY ==
[2025-02-08 10:22] LABS: Anion Gap 9 (12-20); Blood Urea Nitrogen 17 mg/dL (9-16); Calcium 8.9 mg/dL (8.4-10.2); Carbon Dioxide 31 mmol/L (22-29); Chloride 95 mmol/L (96-108); Estimated Glomerular Filt Rate > 60; Potassium 4.7 mmol/L (3.3-5.1); Sodium 130 mmol/L (135-145)
== END 2025-02-08 09:22 | disposition home or self-care (01) ==
LOC: HO.LAB 09:21
DX: E87.1 Hypo-osmolality and hyponatremia (principal)
CPT/HCPCS: 36415; 80048